=== PATIENT | female | born 1950 | race Caucasian/White ===

== ENCOUNTER → 2021-01-14 16:11 | Outpatient (CLI) | payer MEDICARE, SELFPAY ==
--- NOTE | ~2021-01-14 | MM_ITS ---
EXAMINATION: MM screening [facility] BI w cynthia HISTORY: Screening mammogram TECHNIQUE: Craniocaudal and mediolateral oblique 3-D tomosynthesis images were obtained and synthetic 2-D images were generated. CAD analysis was submitted and interpreted. COMPARISON: 11/30/2019, 11/21/2018, 09/23/2017 bilateral digital screening mammogram examinations BREAST PARENCHYMAL COMPOSITION: There are scattered areas of fibroglandular density. FINDINGS: There is a several millimeter irregular asymmetric density in the lateral mid left breast. Diagnostic left mammogram and left breast targeted ultrasound is recommended. Otherwise there is no evidence of suspicious mass, calcification, or architectural distortion to sugg est malignancy in either breast. There has been no other suspicious interval change. IMPRESSION: 1. Left breast asymmetry 2. Diagnostic left mammogram and left targeted breast ultrasound is recommended. BI-RADS Category 0: Incomplete: Needs additional imaging evaluation. Reviewed, dictated and finalized at location A. SCAPE CREW MEMBER IMPRESSION: 1. Left breast asymmetry 2. Diagnostic left mammogram and left targeted breast ultrasound is recommended . BI-RADS Category 0: Incomplete: Needs additional imaging evaluation.
== END ==
PROVIDERS: PCP Internal Medicine; Visit Provider Obstetrics & Gynecology
DX: Z12.31 Encounter for screening mammogram for malignant neoplasm of breast (principal); R92.8 Other abnormal and inconclusive findings on diagnostic imaging of breast
CPT/HCPCS: 77063; 77067

== ENCOUNTER → 2021-02-12 09:13 | Outpatient (CLI) | payer MEDICARE, SELFPAY ==
--- NOTE | ~2021-02-12 | MMUS_ITS ---
EXAMINATION: MM diagnostic mammo unilat LT, US breast LT limited HISTORY: Several millimeter irregular asymmetric density reported in lateral mid left breast on scree ro[facility] mammogram of 01/24/2021 TECHNIQUE: Additional 3-D tomosynthesis images of the left breast were performed and synthetic 2-D im ages were generated. Rolled medial and rolled lateral craniocaudal views. CAD analysis was submitted and interpreted. High resolution upper outer and lower-outer left breast ultrasound was performed. COMPARISON: 01/24/2021 bilateral digital screening mammogram FINDINGS: MAMMOGRAPHIC FINDINGS: No reproducible mass or architectural distortion, malignant constipation, skin thickening or retracti on is evident. ULTRASOUND: No suspicious mass or shadowing is detected in the upper outer or lower outer quadrants. IMPRESSION: 1. No mammographic evidence of malignancy 2. Routine annual mammographic screening is recommended. BI-RADS Category 1: Negative Reviewed, dictated and finalized at location A. IMPRESSION: 1. No mammographic evidence of malignancy 2. Routine annual mammographic screening is recommended. BI-RADS Category 1: Negative
== END ==
PROVIDERS: PCP Internal Medicine; Visit Provider Obstetrics & Gynecology
DX: R92.8 Other abnormal and inconclusive findings on diagnostic imaging of breast (principal)
CPT/HCPCS: 76642; 77065

== ENCOUNTER → 2022-05-29 07:14 | Outpatient (CLI) | payer MEDICARE, SELFPAY ==
--- NOTE | ~2022-05-29 | MM_ITS ---
EXAMINATION: MM screening [facility] BI w cynthia HISTORY: Screening TECHNIQUE: Craniocaudal and mediolateral oblique 3-D tomosynthesis images were obtained and synthetic 2-D images were generated. CAD analysis was submitted and interpreted. COMPARISON: Comparison to multiple prior studies sequentially, with oldest reviewed study dated 06/2016. BREAST PARENCHYMAL COMPOSITION: There are scattered areas of fibroglandular density. FINDINGS: There is no evidence of suspicious mass, calcification, or architectural distortion to sugg est malignancy in either breast. There has been no suspicious interval change. IMPRESSION: 1. No mammographic evidence of malignancy. 2. Recommend routine screening mammography in one year. BI-RADS Category 1: Negative Reviewed, dictated and finalized at location A.
== END ==
PROVIDERS: PCP Physician Assistant; Visit Provider Physician Assistant
DX: Z12.31 Encounter for screening mammogram for malignant neoplasm of breast (principal)
CPT/HCPCS: 77063; 77067

== ENCOUNTER → 2023-06-02 11:11 | Outpatient (CLI) | payer MEDICARE, SELFPAY ==
--- NOTE | ~2023-06-02 | MM_ITS ---
EXAMINATION: MM screening [facility] BI w cynthia HISTORY: Screening mammogram, family history of breast cancer in her mother. TECHNIQUE: Craniocaudal and mediolateral oblique 3-D tomosynthesis images were obtained and synthetic 2-D images were generated. CAD analysis was submitted and interpreted. COMPARISON: 05/29/2022, 02/12/2021, 01/14/2021, 11/30/2019 BREAST PARENCHYMAL COMPOSITION: There are scattered areas of fibroglandular density. FINDINGS: No suspicious mass, calcification, or architectural distortion are identified in either kiesha ast to suggest malignancy. There has been no suspicious interval change. IMPRESSION: 1. No mammographic evidence of malignancy. 2. Recommend routine screening mammography in one year. BI-RADS Category 1: Negative Reviewed, dictated and finalized at location A.
== END ==
PROVIDERS: PCP Physician Assistant; Visit Provider Physician Assistant
DX: Z12.31 Encounter for screening mammogram for malignant neoplasm of breast (principal)
CPT/HCPCS: 77063; 77067

== ENCOUNTER → 2023-09-01 11:10 | Outpatient (CLI) | payer MEDICARE, SELFPAY ==
--- NOTE | ~2023-09-01 | XR_ITS ---
EXAMINATION: XR lumbar spine 6V w bending DATE: 09/01/2023 12:40 INDICATION: Low back pain, unspecified. TECHNIQUE: 7 views of lumbar spine including flexion and extension views were obtained. COMPARISON: None. FINDINGS: There is 3 mm retrolisthesis of T12 on L1 and L1 on L2 and 3 mm anterolisthesis of L3 on L4 . The spine is hypomobile with flexion and extension. There is 35 degrees levoscoliosis of lumbar spi ne. Vertebral body heights are normal. There is moderately decreased disc height at T12-L1 and L1-L2 and severely decreased disc height from L2-L3 through L5-S1. There is multilevel severe facet joint o steoarthritis. IMPRESSION: 1. Severe lumbar spondylosis. 2. Lumbar levoscoliosis. Reviewed, dictated and finalized at location E.
== END ==
PROVIDERS: PCP Physician Assistant; Visit Provider Physician Assistant
DX: M47.896 Other spondylosis, lumbar region (principal)
CPT/HCPCS: 72114

== ENCOUNTER 2024-01-25 07:34 | Outpatient (CLI) | payer MEDICARE, SELFPAY ==
--- NOTE | 2024-01-25 07:44 | ECHO_ITS ---
Patient Info Name: Keara Beck Age: 73 years : 1950 Gender: Female Ht: 66 in Wt: 200 lbs BSA: 2.09 m2 HR: 64 bpm BP: 130 / 78 mmHg Technical Quality: Good Exam Date: 01/25/2024 8:01 AM Exam Location: Echo Lab Patient Status: Outpatient Admit Date: 01/25/2024 Staff Ordering Physician: Eligio Esquivel PA-C Attending Provider: Eligio Esquivel PA-C Referring Physician: Sierra CORRAL; Exam Type: CA echo doppler color flow Study Info Indications R01.1 - Cardiac murmur, unspecified Complete two-dimensional, color flow and Doppler transthoracic echocardiogram is performed. Summary 1. Complete two-dimensional, color flow and Doppler transthoracic echocardiogram is performed. 2. Left ventricular chamber dimension is normal. 3. Left ventricular systolic function is normal, estimated at 60-65%. 4. There is mild concentric increased left ventricular wall thickness. 5. The left ventricular diastolic function is grade I diastolic dysfunction. 6. E/e' 7 is not elevated. 7. Left atrial chamber dimension is mildly enlarged. 8. There is mild aortic valve sclerosis. 9. There is mild mitral valve regurgitation. 10. There is trace tricuspid valve regurgitation. 11. No pulmonary hypertension, estimated pulmonary arterial systolic pressure is 29 mmHg. 12. There is trace pulmonic regurgitation. Left Ventricle E/e' 7 is not elevated. Left ventricular chamber dimension is normal. Left ventricular systolic function is normal, estimated at 60-65%. There is mild concentric increased left ventricular wall thickness. The left ventricular diastolic function is grade I diastolic dysfunction. Right Ventricle Right ventricular systolic function is normal and with normal TAPSE 2.0 cm. Right ventricular chamber dimension is normal. Left Atria Left atrial chamber dimension is mildly enlarged. Right Atria Right atrial chamber dimension is normal. Aortic Valve The aortic valve is trileaflet. There is mild aortic valve sclerosis. There is no aortic valve stenosis. There is no aortic valve regurgitation. Pulmonic Valve There is trace pulmonic regurgitation. Mitral Valve There is no mitral valve stenosis. There is mild mitral valve regurgitation. Tricuspid Valve There is trace tricuspid valve regurgitation. No pulmonary hypertension, estimated pulmonary arterial systolic pressure is 29 mmHg. Pericardium/Pleural There is no pericardial effusion. Inferior Vena Cava Normal inferior vena cava with >50% collapse upon inspiration consistent with normal right atrial pressure, 5 mmHg. Aorta The aortic root size at the sinus of Valsalva is normal. Left Ventricular Outflow Tract Name Value Normal LVOT 2D LVOT Diameter 2.0 cm LVOT Doppler LVOT Peak Gradient 6 mmHg LVOT Mean Gradient 4 mmHg LVOT VTI 28 cm LVOT VTI/AV VTI Ratio 0.8 LVOT Stroke Volume 92 ml LVOT CO 4.7 l/min LVOT CI 2.3 l/min/m2 Pulmonic Valve Name
== END 2024-01-25 07:35 | disposition home or self-care (01) ==
PROVIDERS: PCP Physician Assistant; Visit Provider Physician Assistant
DX: R01.1 Cardiac murmur, unspecified (principal); I34.0 Nonrheumatic mitral (valve) insufficiency; I35.1 Nonrheumatic aortic (valve) insufficiency
CPT/HCPCS: 93306

== ENCOUNTER 2024-02-05 06:42 | Emergency (ER) | payer MEDICARE, SELFPAY ==
[2024-02-05] VITALS (15 sets, daily range): BP systolic 132–167; BP diastolic 63–88; PULSE 57–73; RESP 9–18; TEMP 36.7; O2SAT 70–100
--- NOTE | ~2024-02-05 | CT_ITS ---
EXAMINATION: CTA brain carotid DATE: 02/05/2024 08:36 INDICATION: Vertigo. TECHNIQUE: Computed tomographic angiography (CTA) of the head was performed without and with 100 mL O mnipaque-350 intravenous contrast. CTA of the neck was performed with intravenous contrast. Automated exposure control and iterative reconstruction technique were employed. The dose-length product was 1 536.46 mGy-cm. Maximum intensity projection and volume rendered 3D-reconstructions were created by virginia dorantes technologist on a separate workstation. COMPARISON: None. FINDINGS: HEAD CTA: There are scattered areas of low attenuation in the cerebral white matter. There is no intr acranial hemorrhage, acute infarction, or abnormal intracranial mass lesion. The ventricles are sreekanth l in size. There are likely changes of ocular lens replacement surgeries. There is mild mucosal thick ening in the paranasal sinuses. The mastoid air cells are normal. Left vertebral artery is dominant. There is no significant stenosis of basilar artery or the posterior cerebral arteries. There is no si gnificant stenosis of the intracranial internal carotid arteries or anterior or middle cerebral arter ies. Anterior communicating artery is normal. The posterior communicating arteries are normal. There is no aneurysm. NECK CTA: There are no pathologically enlarged lymph nodes. There is no significant stenosis of the vertebral arteries. There is undulation of the bell of the internal carotid arteries, consistent wit h fibromuscular dysplasia. There is mild plaque in the proximal internal carotid arteries. There is 0 % stenosis of the proximal right internal carotid artery relative to normal distal artery lumen diame ter (NASCET criteria). There is 0% stenosis of the proximal left internal carotid artery relative to normal distal artery lumen diameter. There is severe cervical spondylosis. IMPRESSION: 1. Moderate nonspecific cerebral white matter disease, which likely represents chronic small vessel i schemic disease. 2. No aneurysm or significant intracranial arterial stenosis. 3. 0% stenosis of the proximal internal carotid arteries relative to normal distal artery lumen diame ters (NASCET criteria). 4. 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 Reviewed, dictated and finalized at location A. IMPRESSION: 1. Moderate nonspecific cerebral white matter disease, which likely represents chronic small vessel ischemic disease. 2. No aneurysm or significant intracranial arterial stenosis. 3. 0% stenosis of the proximal internal carotid arteries relative to normal dis brian artery lumen diameters (NASCET criteria). 4. 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
--- NOTE | 2024-02-05 06:46 | ECG_ITS ---
Measurements Intervals [place] Rate: 57 P: 59 NH: 186 QRS: -1 QRSD: 158 T: 144 QT: 477 QTc: 466 Interpretive Statements SINUS BRADYCARDIA LEFT BUNDLE BRANCH BLOCK ABNORMAL ECG NO PREVIOUS ECG AVAILABLE FOR COMPARISON Electronically Signed On 02-05-2024 7:39:56 CDT by Vic Carmona D.O.
[2024-02-05] MEDS: MECLIZINE HCL 25 MG TABLET PO ×2 (07:57→11:26)
[2024-02-05] MEDS: diazePAM INJ (*CRX) 10 MG/2 ML SYRINGE 2.5 MG IV PUSH ×2 (07:58→11:27)
[2024-02-05 08:00] LABS: Basophils Absolute Auto 0.1 K/mm3 (0.0-0.1); Basophils Percent Auto 0.7 % (0.2-1.2); Eosinophils Absolute Auto 0.1 K/mm3 (0-0.3); Eosinophils Percent Auto 1.6 % (0-4.4); Hemoglobin 12.9 g/dL (12.0-15.0); Immature Granulocyte Absolute 0.03 K/mm3 (0.00-0.031); Immature Granulocyte Percent A 0.4 % (0-0.5); Lymphocytes Absolute Auto 1.43 K/mm3 (0.9-3.2); Mean Corpuscular HGB Conc 32.3 g/dl (32-36); Mean Corpuscular Hemoglobin 29.5 pg (26-34); Mean Corpuscular Volume 91.3 fl (80-100); Mean Platelet Volume 9.6 fl (7.4-10.4); Monocytes Absolute Auto 0.5 K/mm3 (0.1-0.6); Monocytes Percent Auto 6.3 % (2.6-8.5); Neutrophils Absolute Auto 5.4 K/mm3 (1.3-6.7); Platelet Count Result 256 k/mm3 (150-375); Red Blood Count 4.38 M/mm3 (4.2-5.4); Red Cell Distribution Width 13.3 % (11.5-14.5); White Blood Count 7.5 K/mm3 (4.5-10.0)
[2024-02-05 08:08] LABS: Alanine Aminotransferase 32 U/L (6-35); Albumin Level 4.1 g/dL (3.5-5.1); Alkaline Phosphatase 82 U/L (38-126); Anion Gap 6 mmol/L (4-12); Aspartate Amino Transferase 35 U/L (14-36); Bilirubin,Total 0.6 mg/dL (0.2-1.3); Blood Urea Nitrogen 24 mg/dL (7-17); Calcium 9.6 mg/dL (8.4-10.2); Carbon Dioxide 27 mmol/L (22-30); Chloride 105 mmol/L (98-107); Estimated CRCL calculation 66 ml/min; Estimated Glomerular Filt Rate > 60; Glucose 153 mg/dL (65-110); Potassium 3.5 mmol/L (3.4-5.0); Sodium 138 mmol/L (137-145)
[2024-02-05] MEDS: ONDANSETRON INJ 4 MG/2 ML VIAL IV PUSH (11:26)
--- NOTE | 2024-02-05 16:29 | ED.DIZZY ---
HPI - Dizziness General Chief Complaint: Dizziness Stated Complaint: woke up dizzy Time Seen by Provider: 02/05/24 07:43 History of Present Illness HPI Narrative: Patient presents with dizziness, happen when she woke up, she tried to stand up and got so dizzy that she threw up. Dizziness much worse with movement, was given Zofran by EMS. No recent trauma. No prior history of strokes. No recent ear infections. Related Data Home Medications Medication Instructions Recorded Confirmed aspirin 81 mg tablet,delayed 81 mg PO DAILY 12/15/19 12/30/23 release (Adult Low Dose Aspirin) calcium carbonate 600 mg calcium 600 mg PO DAILY 12/15/19 12/30/23 (1,500 mg) tablet (Calcium) [id number]-Wm-ufkz-minerals 18 tablet PO 12/15/19 12/30/23 mg-0.4 mg tablet Allergies Allergy/AdvReac Type Severity Reaction Status Date / Time No Known Allergies Allergy Unknown Verified 12/30/23 08:15 Review of Systems Review of Systems: All systems reviewed & are unremarkable except as noted in HPI and below PMFSH Family History Family History Father Family history of malignant neoplasm Family history of diabetes mellitus in first degree relative Mother Family history of malignant neoplasm Family history of diabetes mellitus in first degree relative Social History Social History Smoking status: Never smoker Second hand tobacco smoke exposure: No Alcohol intake: current Drinks per week: 5 Alcohol use details: occasional. Off and on. Not every week. Substance use: never Lack of Transportation: No Lack of Food: Never True Current Housing: I Have Housing Concerned About Future Housing: No Difficulty Paying Gas/Electric Bills: No Difficulty Paying for Meds: No Currently Unemployed: No Education: Master's Degree or Higher Difficulty w/ Childcare or Family Care: No Exam Narrative: EXAMINATION OF ORGAN SYSTEMS/BODY AREAS: Constitutional: Vital signs per nursing GENERAL: Clutching an emesis bag; Quite uncomfortable HEAD: Normal with no signs of head trauma. EYES: EOMI, conjunctiva normal, slight nystagmus ENT: Hearing grossly intact LUNGS: Nonlabored breathing. HEART: [Regular rate and rhythm] ABD: [Soft], [nontender to palpation] EXT: Normal range of motion SKIN: [No rashes or lesions.] NEURO: [Alert and oriented x 3. No gross focal sensory or strength deficits. clear speech.] PSYCH: Normal affect Course Vital Signs Vital signs: Vital Signs Temperature 98.1 F 02/05/24 06:43 Pulse Rate 60 02/05/24 06:43 Respiratory Rate 18 02/05/24 06:43 Blood Pressure 167/64 H 02/05/24 06:43 Pulse Oximetry 98 02/05/24 06:43 Oxygen Delivery Room Air 02/05/24 06:43 Temperature 98.1 F 02/05/24 06:43 Pulse Rate 67 02/05/24 14:15 Respiratory Rate 12 02/05/24 14:15 Blood Pressure 132/88 02/05/24 14:15 Pulse Oximetry 99 02/05/24 14:15 Oxygen Delivery Nasal Cannula 02/05/24 07:41 Oxygen Flow Rate 2 02/05/24 07:41 MDM - Dizziness MDM Narrative Medical decision making narrative: 1) Differential diagnosis: BPPV, CVA, labyrinthitis 2) Comorbidities: hypertension, age 3) External notes reviewed: PCP notes 4) History sources independently obtained from: EMR, patient's family at bedside 5) Discussion of management with: neurology 6) Independent interpretation of: EKG showing sinus bradycardia 57, Normal axis, left bundle-branch block he, normal MI having a, QTC 466. 7) Diagnostic tests or therapies considered but not ordered: 8) Social determinants of health: 9) Shared decision makin-year-old female presenting with vertigo, initially quite vertiginous and comfortable and nauseous, she is given a dose of Valium and meclizine, and on re-evaluation she is feeling much better. I did obtain CTA to rule out posterior CVA
== END 2024-02-05 14:28 | disposition home or self-care (01) ==
PROVIDERS: Student in an Organized Health Care Education/Training Program; Emergency Provider Emergency Medicine; PCP Physician Assistant
DX: R42 Dizziness and giddiness (principal)
CPT/HCPCS: 36415; 70496; 70498; 80053; 85025; 93005; 96374; 96375; 96376; 99284; A9270; J2405; J3360; Q9967

== ENCOUNTER 2024-07-04 12:06 | Outpatient (CLI) | payer MEDICARE, SELFPAY ==
--- NOTE | ~2024-07-04 | MM_ITS ---
EXAMINATION: MM screening [facility] BI w cynthia HISTORY: Screening TECHNIQUE: Craniocaudal and mediolateral oblique 3-D tomosynthesis images were obtained and synthetic 2-D images were generated. CAD analysis was submitted and interpreted. COMPARISON: Comparison to multiple prior studies sequentially, with oldest reviewed study dated 11/21. BREAST PARENCHYMAL COMPOSITION: Not Dense: The breasts are almost entirely fatty. FINDINGS: There is no evidence of suspicious mass, calcification, or architectural distortion to sugg est malignancy in either breast. There has been no suspicious interval change. IMPRESSION: 1. No mammographic evidence of malignancy. 2. Recommend routine screening mammography in one year. BI-RADS Category 1: Negative Reviewed, dictated and finalized at location B.
== END 2024-07-04 12:07 ==
LOC: MICIMG 12:07
PROVIDERS: PCP Internal Medicine; Visit Provider Physician Assistant
DX: Z12.31 Encounter for screening mammogram for malignant neoplasm of breast (principal)
CPT/HCPCS: 77063; 77067

== ENCOUNTER 2024-09-20 14:21 | Outpatient (CLI) | payer MEDICARE, SELFPAY ==
--- NOTE | ~2024-09-20 | XR_ITS ---
EXAMINATION: [id number] DATE: 09/20/2024 14:52 INDICATION: Pain at the base of the skull. TECHNIQUE: 3 views of cervical spine were obtained. COMPARISON: CT neck 02/05/2024 FINDINGS: There is 3 degrees dextrocurvature of cervical spine. There is 3 mm anterolisthesis of C4 o n C5 and 2 mm anterolisthesis of C5 on C6 and 3 mm anterolisthesis of C7 on T1. Vertebral body height s are normal. There is mildly decreased disc height at C4-C5 and severely decreased disc height at C5 -C6 and C6-C7. There is multilevel facet joint osteoarthritis, severe bilaterally at C4-C5 and C7-T1. There is multilevel uncovertebral joint osteoarthritis, severe on the left at C4-C5 and bilaterally at C5-C6 and C6-C7. There is mild central canal stenosis at C4-C5, C5-C6, C6-C7, and C7-T1. No prever tebral soft tissue swelling. IMPRESSION: 1. Severe cervical spondylosis. Reviewed, dictated and finalized at location [] TY TEACHER
== END 2024-09-20 14:22 | disposition home or self-care (01) ==
PROVIDERS: PCP Internal Medicine; Visit Provider Internal Medicine
DX: M47.892 Other spondylosis, cervical region (principal)
CPT/HCPCS: 72040

== ENCOUNTER 2025-07-06 11:20 | Outpatient (CLI) | payer MEDICARE, SELFPAY ==
--- NOTE | ~2025-07-06 | MM_ITS ---
EXAMINATION: MM screening [facility] BI w cynthia HISTORY: Screening TECHNIQUE: Craniocaudal and mediolateral oblique 3-D tomosynthesis images were obtained and synthetic 2-D images were generated. CAD analysis was submitted and interpreted. COMPARISON: Comparison to multiple prior studies sequentially, with oldest reviewed study dated , 11/21/2018 BREAST PARENCHYMAL COMPOSITION: There are scattered areas of fibroglandular density. FINDINGS: There is no evidence of suspicious mass, calcification, or architectural distortion to suggest malignancy in either breast. IMPRESSION: 1. No mammographic evidence of malignancy. 2. Recommend routine screening mammography in one year. BI-RADS Category 1: Negative Reviewed, dictated and finalized at location B.
== END 2025-07-06 11:21 | disposition home or self-care (01) ==
LOC: MICIMG 11:21
PROVIDERS: PCP Internal Medicine; Visit Provider Internal Medicine
DX: Z12.31 Encounter for screening mammogram for malignant neoplasm of breast (principal)
CPT/HCPCS: 77063; 77067